=== PATIENT | female | born 1955 | race African-American/Black ===

== ENCOUNTER 2019-03-21 08:02 | Inpatient (IN) | payer MEDICARE ==
[~2019-03-21] VITALS: Ht 165.1 cm; Wt 76.2 kg
[2019-03-21] MEDS ORDERED: SODIUM CHLORIDE 0.9% 1,000 ML IV ONE ×2 (08:36→11:11)
[2019-03-21] MEDS ORDERED: ONDANSETRON HCL 4MG/2ML INJ IV STA (08:36)
[2019-03-21 08:54] LABS: EOSINOPHILS % 0.3 % (0.0-5.0); HEMATOCRIT. 37.4 % (36.0-48.0); HEMOGLOBIN. 12.8 g/dL (12.0-16.0); LYMPHOCYTES % 14.2 % (20.0-50.0); MEAN CORPUSCULAR HEMOGLOBIN 33.9 pg (28.0-32.0); MEAN PLATELET VOLUME 8.1 fl (7.4-10.4); NEUTROPHILS % 80.5 % (40.0-76.0); PLATELET 290 x1000/uL (130-400); RED BLOOD CELL COUNT 3.78 mill/uL (4.2-5.4); RED CELL DISTRIBUTION WIDTH 13.3 % (11.6-14.6)
[2019-03-21 08:56] LABS: CHLORIDE 110 mEq/L (98-107)
[2019-03-21 08:58] LABS: INR 1.1; PROTHROMBIN TIME 11.1 sec (9.6-11.0)
[2019-03-21 10:06] LABS: CLARITY URINE CLEAR (CLEAR); COLOR URINE YELLOW (YELLOW); KETONES URINE 4+ (NEGATIVE); LEUKOCYTE ESTERASE URINE NEGATIVE (NEGATIVE); NITRITE URINE NEGATIVE (NEGATIVE); OCCULT BLOOD URINE TRACE (NEGATIVE); PH URINE 6.5 (4.5-8.0); PROTEIN URINE 1+ (NEGATIVE); SPECIFIC GRAVITY URINE 1.024 (1.005-1.030)
[2019-03-21] MEDS ORDERED: METOCLOPRAMIDE HCL 10MG/2ML VIAL IV ONE (11:15)
[2019-03-21] MEDS ORDERED: DIPHENHYDRAMINE 50MG/ML VIAL IV PRN (13:45)
[2019-03-21] MEDS ORDERED: IPRATROPIUM/ALBUTEROL 0.5-3(2.5)MG/3ML NEB INH PRN (13:45)
[2019-03-21] MEDS ORDERED: MAGNESIUM/ALUMINUM HYDROXIDE/SIMETHICONE 30ML UDC PO PRN (13:45)
[2019-03-21] MEDS ORDERED: HYDROCODONE/ACETAMINOPHEN 5/325MG TABLET PO PRN (13:45)
[2019-03-21] MEDS ORDERED: GUAIFENESIN 200MG/10ML SUGAR FREE UDC PO PRN (13:45)
[2019-03-21] MEDS ORDERED: MORPHINE SULFATE 2 MG/ML CPJ (NOT FOR IM USE) IV PRN (13:45)
[2019-03-21] MEDS ORDERED: NA PHOS,M-B/NA PHOS,DI-BA ENEMA 118ML PR PRN (13:45)
[2019-03-21] MEDS ORDERED: DOCUSATE SODIUM 100MG CAPSULE PO PRN (13:45)
[2019-03-21] MEDS ORDERED: LORAZEPAM 2MG/ML CPJ IV PRN (13:45)
[2019-03-21] MEDS ORDERED: ACETAMINOPHEN 325MG TABLET PO PRN (13:45)
[2019-03-21 15:48] VITALS: BP 141/63
[2019-03-21 16:00] VITALS: BP 141/63
[2019-03-21] MEDS: ENOXAPARIN 40MG/0.4ML SYR SUBCUT SCH (17:44)
[2019-03-21] MEDS: SODIUM CHLORIDE 0.45% 1,000 ML IV SCH (18:37)
[2019-03-21] MEDS ORDERED: PREG150C MT (19:17)
[2019-03-21 20:23] VITALS: BP 121/60
[2019-03-21 20:28] VITALS: BP 149/71
[2019-03-22] VITALS: BP 169/83
[2019-03-22] MEDS: CLONIDINE 0.1MG TABLET PO PRN ×2 (01:12→09:15)
[2019-03-22 04:00] VITALS: BP 150/74
[2019-03-22] MEDS: SODIUM CHLORIDE 0.45% 1,000 ML IV SCH ×3 (05:32→19:46)
[2019-03-22 06:23] LABS: CHLORIDE 111 mEq/L (98-107)
[2019-03-22 06:28] LABS: BASOPHILS % 0.9 % (0.0-2.0); EOSINOPHILS % 0.3 % (0.0-5.0); HEMATOCRIT. 31.9 % (36.0-48.0); LYMPHOCYTES % 20.7 % (20.0-50.0); MEAN CORPUSCULAR VOLUME 98.6 fL (81.0-99.0); MEAN PLATELET VOLUME 8.7 fl (7.4-10.4); MONOCYTES % 7.1 % (2.0-8.0); PLATELET 261 x1000/uL (130-400); RED BLOOD CELL COUNT 3.24 mill/uL (4.2-5.4); RED CELL DISTRIBUTION WIDTH 13.3 % (11.6-14.6)
[2019-03-22 06:33] LABS: LDL CHOLESTEROL 117 mg/dL (5-100)
[2019-03-22 06:34] LABS: HDL CHOLESTEROL 48 mg/dL (40-59)
[2019-03-22] MEDS ORDERED: POTASSIUM CHLORIDE 20MEQ TABLET SR PO NR (07:15)
[2019-03-22 08:00] VITALS: BP 164/79
[2019-03-22] MEDS ORDERED: FAMOTIDINE 20MG/2ML VIAL IV SCH (09:00)
[2019-03-22] MEDS: ONDANSETRON HCL 4MG/2ML INJ IV PRN (09:15)
[2019-03-22] MEDS: FAMOTIDINE 20MG/2ML VIAL IV SCH ×2 (09:30→21:12)
[2019-03-22 12:00] VITALS: BP 153/76
[2019-03-22 16:00] VITALS: BP 162/73
[2019-03-22] MEDS: ENOXAPARIN 40MG/0.4ML SYR SUBCUT SCH (16:19)
[2019-03-22] MEDS ORDERED: MELO-106 MT (18:39)
[2019-03-22] MEDS ORDERED: ENAL10TA MT (18:39)
[2019-03-22] MEDS ORDERED: PREG150C MT (18:39)
[2019-03-22] MEDS ORDERED: AMLO10TA80 MT (18:39)
[2019-03-22] MEDS ORDERED: HYDR200T35 MT (18:39)
[2019-03-22] MEDS ORDERED: DYR5 MT (18:39)
[2019-03-22] MEDS ORDERED: HYDROXYCHLOROQUINE SULFATE MT SCH (18:45)
[2019-03-22] MEDS ORDERED: MEDICATION NOT ON FORMULARY EA (Enalapril Maleate 1 TAB) MT SCH (18:45)
[2019-03-22] MEDS: HYDROXYCHLOROQUINE SULFATE 200MG TABLET PO SCH (19:40)
[2019-03-22] MEDS: AMLODIPINE 10MG TABLET PO SCH (19:40)
[2019-03-22 20:00] VITALS: BP 153/81
[2019-03-22] MEDS ORDERED: MELOXICAM 7.5MG TABLET PO PRN (21:00)
[2019-03-23] VITALS: BP 144/65
[2019-03-23 04:44] VITALS: BP 144/64
[2019-03-23 06:58] LABS: BASOPHILS % 1.1 % (0.0-2.0); EOSINOPHILS % 1.3 % (0.0-5.0); HEMATOCRIT. 34.2 % (36.0-48.0); HEMOGLOBIN. 11.6 g/dL (12.0-16.0); LYMPHOCYTES % 22.6 % (20.0-50.0); MEAN CORPUSCULAR HEMOGLOBIN 33.2 pg (28.0-32.0); MEAN CORPUSCULAR VOLUME 98.3 fL (81.0-99.0); MEAN PLATELET VOLUME 8.8 fl (7.4-10.4); MONOCYTES % 8.1 % (2.0-8.0); NEUTROPHILS % 66.9 % (40.0-76.0); PLATELET 257 x1000/uL (130-400); RED BLOOD CELL COUNT 3.48 mill/uL (4.2-5.4); RED CELL DISTRIBUTION WIDTH 12.9 % (11.6-14.6)
[2019-03-23 07:30] LABS: CHLORIDE 108 mEq/L (98-107)
[2019-03-23] MEDS ORDERED: POTASSIUM CHLORIDE 20MEQ TABLET SR PO NR ×2 (08:45→12:00)
[2019-03-23] MEDS: PREGABALIN 75MG CAPSULE PO SCH ×3 (08:58→18:40)
[2019-03-23] MEDS: AMLODIPINE 10MG TABLET PO SCH (08:58)
[2019-03-23] MEDS: HYDROXYCHLOROQUINE SULFATE 200MG TABLET PO SCH ×2 (08:59→18:40)
[2019-03-23] MEDS: ENALAPRIL 5MG TABLET PO SCH (08:59)
[2019-03-23] MEDS: TRIAMTERENE/HYDROCHLOROTHIAZIDE 37.5/25MG CAPSULE PO SCH (09:00)
[2019-03-23] MEDS: FAMOTIDINE 20MG/2ML VIAL IV SCH ×2 (09:01→20:41)
[2019-03-23] MEDS: ONDANSETRON HCL 4MG/2ML INJ IV PRN (09:01)
[2019-03-23 11:49] LABS: CLARITY URINE CLEAR (CLEAR); COLOR URINE YELLOW (YELLOW); KETONES URINE 2+ (NEGATIVE); LEUKOCYTE ESTERASE URINE NEGATIVE (NEGATIVE); NITRITE URINE NEGATIVE (NEGATIVE); OCCULT BLOOD URINE TRACE (NEGATIVE); PH URINE 7.5 (4.5-8.0); PROTEIN URINE 1+ (NEGATIVE); SPECIFIC GRAVITY URINE 1.013 (1.005-1.030)
[2019-03-23 12:00] VITALS: BP 139/74
[2019-03-23] MEDS: METOCLOPRAMIDE HCL 10MG/2ML VIAL IV SCH ×2 (12:33→18:40)
[2019-03-23] MEDS: ENOXAPARIN 40MG/0.4ML SYR SUBCUT SCH (15:03)
[2019-03-23] MEDS: SODIUM CHLORIDE 0.45% 1,000 ML IV SCH (15:05)
[2019-03-23 16:00] VITALS: BP 123/80
[2019-03-23 20:00] VITALS: BP 131/66
[2019-03-24] VITALS: BP 126/58
[2019-03-24] MEDS: METOCLOPRAMIDE HCL 10MG/2ML VIAL IV SCH ×2 (00:31→06:07)
[2019-03-24 04:00] VITALS: BP 140/73
[2019-03-24] MEDS: SODIUM CHLORIDE 0.45% 1,000 ML IV SCH (04:28)
[2019-03-24 08:00] VITALS: BP 117/50
[2019-03-24] MEDS: HYDROXYCHLOROQUINE SULFATE 200MG TABLET PO SCH (08:38)
[2019-03-24] MEDS: TRIAMTERENE/HYDROCHLOROTHIAZIDE 37.5/25MG CAPSULE PO SCH (08:39)
[2019-03-24] MEDS: PREGABALIN 75MG CAPSULE PO SCH (08:39)
[2019-03-24] MEDS: ENALAPRIL 5MG TABLET PO SCH (08:39)
[2019-03-24] MEDS: AMLODIPINE 10MG TABLET PO SCH (08:39)
[2019-03-24] MEDS ORDERED: FAMOTIDINE 20MG TABLET PO SCH (09:00)
== END 2019-03-24 10:45 | disposition left against medical advice (07) | DRG 392 ==
LOC: ER 08:36 → 6WST 13:19 → ENRESERV 13:32
PROVIDERS: ADMIT Internal Medicine; ATTEND Internal Medicine
DX: K29.70 Gastritis, unspecified, without bleeding (principal); E87.0 Hyperosmolality and hypernatremia; E86.0 Dehydration; E87.6 Hypokalemia; I10 Essential (primary) hypertension; M79.7 Fibromyalgia; Z53.21 Procedure and treatment not carried out due to patient leaving prior to being seen by health care provider; Z79.899 Other long term (current) drug therapy
CPT/HCPCS: 36415; 74176; 80048; 80061; 84439; 84443; 84484; 93005; 96361; 96374; 96375; 99285; J1650; J2405; J2765; J3490; J7030

== ENCOUNTER 2019-03-30 09:05 | Emergency (ER) | payer MEDICARE ==
[~2019-03-30] VITALS: Ht 175.3 cm; Wt 68.0 kg
[~2019-03-30 09:05] MED LIST: AMLO10TA80 MT; DYR5 MT; ENAL10TA MT; HYDR200T35 MT; MELO-106 MT; PREG150C MT
[2019-03-30] MEDS ORDERED: MORPHINE SULFATE 4 MG/ML CPJ (NOT FOR IM USE) IV STA (09:41)
[2019-03-30] MEDS ORDERED: ONDANSETRON HCL 4MG/2ML INJ IV STA (09:41)
[2019-03-30] MEDS ORDERED: SODIUM CHLORIDE 0.9% 1,000 ML IV ONE (09:41)
[2019-03-30] MEDS ORDERED: VISCOUS LIDOCAINE 2% 15 ML UDC PO STA (09:47)
[2019-03-30] MEDS ORDERED: MAGNESIUM/ALUMINUM HYDROXIDE/SIMETHICONE 30ML UDC PO STA (09:47)
[2019-03-30 09:59] LABS: BASOPHILS % 0.5 % (0.0-2.0); EOSINOPHILS % 0.7 % (0.0-5.0); HEMOGLOBIN. 11.7 g/dL (12.0-16.0); MEAN CORPUSCULAR HEMOGLOBIN 33.9 pg (28.0-32.0); MONOCYTES % 6.8 % (2.0-8.0); PLATELET 355 x1000/uL (130-400); RED BLOOD CELL COUNT 3.47 mill/uL (4.2-5.4); RED CELL DISTRIBUTION WIDTH 13.5 % (11.6-14.6)
[2019-03-30] MEDS ORDERED: FAMOTIDINE 20MG/2ML VIAL IV ONE (10:00)
[2019-03-30 10:04] LABS: CHLORIDE 106 mEq/L (98-107)
[2019-03-30 10:06] LABS: PROTHROMBIN TIME 10.5 sec (9.6-11.0)
[2019-03-30 13:23] LABS: CLARITY URINE CLEAR (CLEAR); COLOR URINE YELLOW (YELLOW); KETONES URINE 1+ (NEGATIVE); LEUKOCYTE ESTERASE URINE NEGATIVE (NEGATIVE); NITRITE URINE POSITIVE (NEGATIVE); OCCULT BLOOD URINE TRACE (NEGATIVE); PROTEIN URINE 1+ (NEGATIVE); SPECIFIC GRAVITY URINE 1.019 (1.005-1.030)
[2019-03-30 15:57] VITALS: BP 124/62
== END 2019-03-30 16:30 | disposition home or self-care (01) ==
LOC: ER 09:05
DX: R10.13 Epigastric pain (principal); R11.0 Nausea; N39.0 Urinary tract infection, site not specified; I10 Essential (primary) hypertension; M32.9 Systemic lupus erythematosus, unspecified
CPT/HCPCS: 36415; 76705; 80053; 81003; 83690; 85025; 85610; 96374; 96375; 99284; J2270; J2405; J3490; J7030